=== PATIENT | male | born 1945 | race Caucasian/White ===

== ENCOUNTER → 2016-12-10 | Outpatient (CLI) | payer MEDICARE ==
[~2016-12-10] MED LIST: AMLODIPINE10 MG PO; CENTRUM SILVER1 TA1 PO; CIPROFLOXACIN500 MG PO; CO ENZYME Q-1050 MG PO; CRESTOR10 MG PO; GLYBURIDE MICRO1 TA1 PO; JANUVIA100 MG PO; KLOR-CON M2020 MEQ PO; LASIX40 MG PO; METOPROLOL SR50 MG PO; NOVOLIN 70/30 710 ML SC; QUINAPRIL40 MG PO
== END | disposition home or self-care (01) ==
LOC: US 10:26
DX: N18.4 Chronic kidney disease, stage 4 (severe) (principal); N32.89 Other specified disorders of bladder; Z85.528 Personal history of other malignant neoplasm of kidney; Z90.5 Acquired absence of kidney

== ENCOUNTER → 2017-02-17 | Outpatient (CLI) | payer MEDICARE ==
[2017-02-17 10:24] LABS: BASO % 0.5 % (0.0-1.0); EOS # 0.1 10*3/uL (0.0-0.4); EOS % 1.5 % (1.0-4.0); HEMATOCRIT 43.3 % (42.0-52.0); IG # 0.1 10*3/uL (0.0-0.1); LYMPH # 1.5 10*3/uL (1.3-4.4); LYMPH % 18.6 % (27.0-41.0); MEAN CELL VOLUME 87.1 fl (80.0-94.0); MEAN CORPUSCULAR HGB 30.2 pg (27.0-31.0); MEAN CORPUSCULAR HGB CONC 34.6 g/dl (33.0-37.0); MEAN PLATELET VOLUME 9.8 fl (9.6-12.3); MONO # 0.5 10*3/uL (0.1-1.0); MONO % 5.9 % (3.0-9.0); NEUT # 5.8 10*3/uL (2.3-7.9); NEUT % 72.6 % (47.0-73.0); PLATELET COUNT AUTOMATED 215 10*3/uL (130-400); RED BLOOD COUNT 4.97 10*6/uL (4.50-5.90)
[2017-02-17 10:32] LABS: BILIRUBIN NEGATIVE (NEGATIVE); BLOOD NEGATIVE (NEGATIVE); CLARITY CLEAR (CLEAR); COLOR STRAW (YELLOW); GLUCOSE 3+ (NEGATIVE); KETONE NEGATIVE (NEGATIVE); LEUKO ESTERASE NEGATIVE (NEGATIVE); NITRITE NEGATIVE (NEGATIVE); PROTEIN NEGATIVE (NEGATIVE); SPECIFIC GRAVITY <= 1.005 (1.005-1.030); UROBILINOGEN 0.2 E.U./dl (0.2-1.0)
[2017-02-17 10:55] LABS: MAGNESIUM 1.9 mg/dL (1.5-2.1); PHOSPHOROUS 2.9 mg/dL (2.5-4.9); POTASSIUM 3.8 mmol/L (3.5-5.1); WBC 0-2 wbc/hpf (0-5)
[2017-02-17 10:56] LABS: EPITHELIAL CELLS 0-2; URINE REFLEX COMMENT NO (NO)
[2017-02-17 11:39] LABS: PTH INTACT 58.2 pg/mL (14.0-72.0); VITAMIN D, 25-HYDROXY 25.9 ng/mL (30-100)
== END | disposition home or self-care (01) ==
LOC: LAB 09:54
PROVIDERS: Internal Medicine Nephrology
DX: N18.3 Chronic kidney disease, stage 3 (moderate) (principal); N25.81 Secondary hyperparathyroidism of renal origin

== ENCOUNTER → 2017-07-20 | Outpatient (CLI) | payer MEDICARE ==
[~2017-07-20] MED LIST changes: +ANACIN 400-321 EACH PO; +LOPRESSOR50 M1 PO; -METOPROLOL SR50 MG PO; +NOVOLOG MI100 UNIT/1 SQ; +OMEPRAZOLE20 M2 PO; +VITAMIN D31000 UNI1 PO; +XARE15TA PO
--- NOTE | 2017-07-20 10:00 | NUR ---
INFORMED CONSENT OBTAINED FOR LEXISCAN NUCLEAR STRESS TEST. RESTING EKG ATRIAL FIB WITH A RESTING HR OF 70 WITH BP OF 148/60. LUNGS CLEAR WITH SPO2 OF 96% ON ROOM AIR. PT COMPLETED A 1:00 LEXISCAN PROTOCOL RECEIVING LEXISCAN 0.4 MG IV OVER 10 SECONDS. HAD NO CHEST PAIN OR ANY EKG CHANGES. DID C/O "ODD FEELING" THAT SUBSIDED IN RECOVERY. HAD A PEAK HR OF 85 WITH BP OF 144/80. LAST RECOVERY HR OF 85 WITH BP OF 154/84. AWAITING SCANNING IN STABLE CONDITION.
== END | disposition home or self-care (01) ==
LOC: CARD 03:40
DX: I51.7 Cardiomegaly (principal); E11.9 Type 2 diabetes mellitus without complications; I10 Essential (primary) hypertension; Z87.891 Personal history of nicotine dependence

== ENCOUNTER → 2017-08-08 | Outpatient (CLI) | payer MEDICARE | LOC: LAB 15:16 | DX: H57.9 Unspecified disorder of eye and adnexa (principal) ==

== ENCOUNTER → 2018-06-26 | Outpatient (CLI) | payer MEDICARE ==
[2018-06-26 11:43] LABS: BASO # 0.1 10*3/uL (0.0-0.1); BASO % 0.8 % (0.0-1.0); EOS # 0.1 10*3/uL (0.0-0.4); EOS % 1.7 % (1.0-4.0); HEMATOCRIT 45.4 % (42.0-52.0); HEMOGLOBIN 15.1 g/dl (14.0-18.0); LYMPH # 1.7 10*3/uL (1.3-4.4); LYMPH % 22.8 % (27.0-41.0); MEAN CELL VOLUME 87.5 fl (80.0-94.0); MEAN CORPUSCULAR HGB 29.1 pg (27.0-31.0); MEAN CORPUSCULAR HGB CONC 33.3 g/dl (33.0-37.0); MEAN PLATELET VOLUME 9.6 fl (9.6-12.3); MONO # 0.7 10*3/uL (0.1-1.0); MONO % 8.9 % (3.0-9.0); NEUT # 4.8 10*3/uL (2.3-7.9); NEUT % 64.9 % (47.0-73.0); PLATELET COUNT AUTOMATED 221 10*3/uL (130-400); RED BLOOD COUNT 5.19 10*6/uL (4.50-5.90); RED CELL DISTRI WIDTH 13.5 % (0-14.5); WHITE BLOOD COUNT 7.5 10*3/uL (4.8-10.8)
[2018-06-26 12:14] LABS: ALBUMIN 3.6 gm/dl (3.1-4.5); CREATININE 1.69 mg/dL (0.70-1.30); POTASSIUM 3.9 mmol/L (3.5-5.1); TOTAL PROTEIN 7.3 gm/dL (6.4-8.2)
[2018-06-26 12:23] LABS: FREE T4 1.09 ng/dl (0.76-1.46); THYROID STIM HORMONE (HS) 1.92 uIU/ml (0.358-4.75)
== END | disposition home or self-care (01) ==
LOC: LAB 10:54
PROVIDERS: Internal Medicine
DX: S32.010A Wedge compression fracture of first lumbar vertebra, initial encounter for closed fracture (principal); E11.65 Type 2 diabetes mellitus with hyperglycemia; R06.02 Shortness of breath; R60.0 Localized edema; I48.2 Chronic atrial fibrillation; X58.XXXA Exposure to other specified factors, initial encounter; Y93.89 Activity, other specified; Y92.89 Other specified places as the place of occurrence of the external cause; Y99.8 Other external cause status

== ENCOUNTER → 2018-07-03 | Outpatient (CLI) | payer MEDICARE | END | disposition home or self-care (01) | LOC: CARD 03:23 | DX: S32.010A Wedge compression fracture of first lumbar vertebra, initial encounter for closed fracture (principal); M51.37 Other intervertebral disc degeneration, lumbosacral region; I48.2 Chronic atrial fibrillation; I51.7 Cardiomegaly; X58.XXXA Exposure to other specified factors, initial encounter; Y93.89 Activity, other specified; Y92.89 Other specified places as the place of occurrence of the external cause; Y99.8 Other external cause status ==

== ENCOUNTER → 2018-08-21 | Outpatient (CLI) | payer MEDICARE ==
[~2018-08-21] MED LIST changes: +CEPHALEXIN500 M1 PO; +PROPAFENONE HC150 MG PO; +ZYLOPRIM100 MG PO
== END | disposition home or self-care (01) ==
DX: M43.9 Deforming dorsopathy, unspecified (principal)

== ENCOUNTER → 2018-09-14 | Outpatient (CLI) | payer MEDICARE ==
[2018-09-14 12:24] LABS: PTH INTACT 80.7 pg/mL (18.5-88.0); VITAMIN D, 25-HYDROXY 30.3 ng/mL (30-100)
[2018-09-14 13:33] LABS: URINE CREATININE RANDOM 77.7 mg/dL
== END | disposition home or self-care (01) ==
PROVIDERS: Internal Medicine Nephrology
DX: I12.9 Hypertensive chronic kidney disease with stage 1 through stage 4 chronic kidney disease, or unspecified chronic kidney disease (principal); E11.22 Type 2 diabetes mellitus with diabetic chronic kidney disease; N18.4 Chronic kidney disease, stage 4 (severe); Z90.5 Acquired absence of kidney

== ENCOUNTER 2018-10-21 18:22 | Inpatient (IN) | payer MEDICARE ==
[~2018-10-21] VITALS: Ht 180.3 cm; Wt 149.9 kg
--- NOTE | ~2018-10-21 | EKG ---
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
--- NOTE | ~2018-10-21 | WRIGHTHP ---
[place], [place] PATIENT HISTORY AND PHYSICAL EXAM NAME: MAXIMO DODGE [facility] #: [id number] UNIT #: [id number] ROOM: [facility] DOCTOR: DUYEN YU MD BIRTHDATE: [birth year] DOS: HISTORY OF PRESENT ILLNESS: The patient has been admitted to hospital last night with cellulitis of the abdominal wall, which he started having for the last 5 days. It started like a small pimple, then spread all around his belly starting from the left side going to the right side and it did become painful and itchy and he came to hospital, where he was found to be having cellulitis of the abdominal wall and needed to be admitted to the hospital. The patient denies any pain inside the abdomen. No nausea, no vomiting, no constipation or diarrhea and he is eating good. He has been ambulating fairly good. PAST MEDICAL HISTORY: The patient has past history of hypertension; GERD syndrome; atrial fibrillation; diabetes mellitus, insulin-dependent; ASHD; congestive heart failure; hyperlipidemia. PAST SURGICAL HISTORY: He has a past history of appendectomy and nephrectomy. SOCIAL HISTORY: The patient does not smoke, does not drink, does not use any illegal drugs. FAMILY HISTORY: Strong history of diabetes mellitus and coronary heart disease, hypertension and cerebrovascular disease in the family. PHYSICAL EXAMINATION: GENERAL: The patient is conscious and alert, sitting comfortably in the bed. VITAL SIGNS: His blood pressure is 111/72, pulse is 52, respirations 21, temperature 98.2. He is 5 feet 11 inches tall, weighing 300 pound, body mass is 46.1. ENT: Unremarkable. No glandular enlargement. NECK: Trachea is central. Neck veins are not distended. HEART: Irregularly irregular due to atrial fibrillation. LUNGS: Clear. No creps or rhonchi. ABDOMEN: He is having redness, swelling all across his abdomen, mostly in the lower two-third, local temperature. It is red and inflamed and tender to touch, but there is no evident localized abscess felt and the patient's organomegaly cannot be felt as he is obese, but apparently he does not have any GI or symptom. EXTREMITIES: No edema of leg. NEUROLOGIC: No neurological deficit observed. LABORATORY DATA: CBC done in Emergency showed white count 10,500, hemoglobin 15.1, hematocrit 43.9. Lactic acid is 1.3, which is normal. Protime is 11.6, which is also normal. Comprehensive metabolic profile showed glucose 267, BUN 23, creatinine 1.75, GFR 38. Sodium 134, calcium 8.2, other values are normal, indicating chronic renal failure. His troponin level is 0.69, which is high. Electrocardiogram showed atrial fibrillation. Chest x-ray shows left lower lobe patchy atelectasis seen. Repeat troponin level is 0.72 and 0.63, which is high. Comprehensive metabolic profile today showed glucose 223, BUN 20, creatinine 1.68, GFR is 40 and hemoglobin A1c is 8.5, which is high. [place], [place] PATIENT HISTORY AND PHYSICAL EXAM [facility]: [facility] [id number] UNIT #: [id number] ROOM: [facility] DOCTOR: DUYEN YU MD BIRTHDATE: [birth year] DIAGNOSES: Cellulitis of the abdominal wall with diabetes mellitus, uncontrolled with massive ST atrial fibrillation, arteriosclerotic heart disease, hypertension and diabetic nephropathy with renal failure. MEDICATIONS: The patient is being treated by allopurinol 100 mg daily, rivaroxaban 15 mg daily, lisinopril 40 mg, potassium chloride 20 mEq, metoprolol 50 mg, Lasix 40 mg daily, vitamin D 1000 units daily, insulin 100 units subcutaneous, omeprazole 20 mg, piperacillin 3.375 grams every 6 hour and vancomycin 1 gram daily. DUYEN YU MD CM:HISPHYS:PATIENT HISTORY AND PHYSICAL EXAMINATION 1310 1403 DUYEN YU MD 10/22/18 1404 interface
--- NOTE | ~2018-10-21 | PR ---
[place], [place] PROGRESS NOTE [facility] [id number] UNIT #: [id number] ROOM: 501 DOCTOR: GELA ERAZO MD BIRTHDATE: [birth year] DOS: 10/23/2018 SUBJECTIVE: He feels fairly decent. Does not have any chills or fever, but abdominal wall is still very tender. He has not had any nausea or vomiting. He is not short of breath. He has no palpitations or swelling in the legs. PHYSICAL EXAMINATION: GENERAL: The patient is pleasant, alert, oriented. VITAL SIGNS: Pulse is irregular at 64 beats per minute, blood pressure 142/78. NECK: JVP is normal. LUNGS: Fairly clear. EXTREMITIES: 1+ pretibial edema bilaterally. Monitor shows atrial flutter with a controlled ventricular rate. A transthoracic echocardiogram that was done last year was unsatisfactory because all details of the heart could not be obtained because of poor study. RECOMMENDATIONS: The patient will undergo a transesophageal echocardiogram tomorrow followed by electrical cardioversion and I discussed this procedure with the patient. He understands and would like to proceed. GELA ERAZO MD CM:PNTRANS 1035 [id number] GELA ERAZO MD 10/23/18 1359 interface
--- NOTE | ~2018-10-21 | PR ---
[place], [place] PROGRESS NOTE NAME: MAXIMO DODGE [facility] #: [id number] UNIT #: [id number] ROOM: 501 DOCTOR: GELA ERAZO MD BIRTHDATE: [birth year] DOS: 10/26/2018 SUBJECTIVE: He feels well. No fever or chills. Abdominal pain has subsided remarkably and redness has also decreased. He has no palpitation, dizziness. Breathing is fine. He had a transesophageal echocardiogram and electrical cardioversion of atrial flutter, atrial fibrillation to normal sinus rhythm. He feels well. Appetite is good. PHYSICAL EXAMINATION: GENERAL: The patient was sitting in a chair, very obese man. VITAL SIGNS: Pulse is regular at 64 beats per minute, blood pressure 132/65. NECK: JVP is normal. LUNGS: Clear. CARDIOVASCULAR: Heart sounds are regular. IMPRESSION: 1. The patient remains in sinus rhythm. 2. His cellulitis of the abdominal wall has responded well to antibiotics. PLAN: Please continue antiarrhythmic and anticoagulant and I will see him in my office in 2-4 weeks. GELA ERAZO MD CM:PNTRANS [phone] [id number] GELA ERAZO MD 10/27/18228 interface
--- NOTE | ~2018-10-21 | EKG ---
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
--- NOTE | ~2018-10-21 | CON ---
[place], [place] REPORT OF CONSULTATION [id number] #: [id number] ROOM: 501 DOCTOR: GELA ERAZO MD BIRTHDATE: [birth year] DOS: 10/22/2018 HISTORY OF PRESENT ILLNESS: This is a 72-year-old -[place] gentleman with a history of atrial fibrillation, which was diagnosed in August last year and has been anticoagulated ever since. He also has essential hypertension and diabetes mellitus for a very long time that has been poorly controlled. He has morbid obesity, has hyperlipidemia, but has never had COPD, never had cancer, stroke or any bleeding ulcers and he is not aware of his kidney having any problems. He had appendectomy, in the remote past had right nephrectomy as well. He has never smoked cigarettes, does not use alcoholic beverages. FAMILY HISTORY: Father was 61 when he had a heart attack and . Mother of complications from diabetes at a young age as well. SOCIAL HISTORY: He lives at home and is a reasonably active gentleman. He was admitted to the hospital because of redness and soreness of the abdominal wall and acute cellulitis has been diagnosed. He did not have any fever or chills. No PND, orthopnea and is not aware of his heart beating irregularly. He has not had any orthopnea. He does have sleep apnea, but does not use CPAP. HOME MEDICATIONS: Include metoprolol tartrate 50 mg daily, omeprazole 20 daily, rivaroxaban 15 mg daily, aspirin/caffeine daily, furosemide 40 mg daily, lovastatin 10 daily, quinapril 40 mg daily, potassium chloride 20 mEq daily, cholecalciferol D3 1000 units b.i.d., omeprazole 20 daily and insulin/NovoLog mix 70/30 120 units daily. PHYSICAL EXAMINATION: GENERAL: This reveals a patient who is extremely obese and weighs 150 kilos. He is not anemic, not jaundiced. There is no thyromegaly or finger clubbing. VITAL SIGNS: He is not tachypneic. Temperature is normal. CARDIOVASCULAR: Pulse is irregular at 86 beats per minute, blood pressure 133/59. There is no cardiomegaly. Cardiac auscultation reveals distant heart sounds, but no murmur or rub. NECK: JVP is normal. AJR is negative. There is no carotid bruit. EXTREMITIES: He has good dorsalis pedis pulses with no edema in the lower extremities. RESPIRATORY: Lungs are clear to percussion and auscultation with good breath sounds. ABDOMEN: It is rather large and there is acute erythema and tenderness with some induration of the skin in the middle portion of the abdomen that goes across both sides. Bowel sounds are normal. An ECG on admission demonstrated atrial fibrillation with ventricular rate of 77 beats per minute. Troponin I level was 0.72, then has trended down to 0.63 and 0.59. Glucose is 267 mg/dL, creatinine is 1.78, BUN 23, and estimated GFR is 38 mL per minute, potassium 4.2, sodium 134 which is probably a pseudohyponatremia because of elevated glucose level. Liver enzymes are normal. Magnesium 1.8. Hemoglobin [place], [place] REPORT OF CONSULTATION NAME: MAXIMO DODGE UNIT #: [id number] ROOM: [facility] DOCTOR: GELA ERAZO MD BIRTHDATE: [birth year] is 15.1 g/dL, WBC 10.50. IMPRESSION: 1. Persistent atrial fibrillation diagnosed recently. He is adequately anticoagulated and the rate is controlled. My recommendation is to electrically cardiovert this man into normal sinus rhythm and if not successful or even successful, then place him on an antiarrhythmic. He had an echocardiogram in June of last year, which showed normal LV function and moderately enlarged left atrium. 2. Slightly increased troponin I level is present. The rate is trending down. This may be type 2 myocardial infarction, may be non-coronary occlusion reasons such as chronic kidney disease, tachycardia, but I think this needs to be evaluated further and since he has all major risk factors for coronary artery disease other than smoking, I think a diagnostic heart catheterization with selective coronary angiogram would probably be a better approach. 3. Abdominal wall cellulitis is being treated. 4. Chronic kidney disease. I thank you for this consult. GELA ERAZO MD CM:CONSTR:REPORT OF CONSULTATION 1106 10/23/18 0216 interface ANDREW SHAVER MD
[2018-10-21 18:22] VITALS: BP 170/85
[~2018-10-21 18:22] MED LIST changes: -CEPHALEXIN500 M1 PO; -PROPAFENONE HC150 MG PO; -ZYLOPRIM100 MG PO
[2018-10-21 18:56] LABS: BASO % 0.4 % (0.0-1.0); EOS % 0.4 % (1.0-4.0); HEMATOCRIT 43.9 % (42.0-52.0); HEMOGLOBIN 15.1 g/dl (14.0-18.0); LYMPH # 1.4 10*3/uL (1.3-4.4); LYMPH % 13.1 % (27.0-41.0); MEAN CELL VOLUME 85.9 fl (80.0-94.0); MEAN CORPUSCULAR HGB 29.5 pg (27.0-31.0); MEAN CORPUSCULAR HGB CONC 34.4 g/dl (33.0-37.0); MONO % 9.3 % (3.0-9.0); NEUT % 76.1 % (47.0-73.0); PLATELET COUNT AUTOMATED 186 10*3/uL (130-400); RED BLOOD COUNT 5.11 10*6/uL (4.50-5.90); RED CELL DISTRI WIDTH 13.7 % (0-14.5); WHITE BLOOD COUNT 10.5 10*3/uL (4.8-10.8)
[2018-10-21 19:04] LABS: INTERNATIONAL NORM RATIO 1.1 (2.0-3.5)
[2018-10-21 19:11] LABS: ALBUMIN 3.1 gm/dl (3.1-4.5); CREATININE 1.78 mg/dL (0.70-1.30); POTASSIUM 4.2 mmol/L (3.5-5.1); TOTAL PROTEIN 7.3 gm/dL (6.4-8.2)
--- NOTE | 2018-10-21 19:13 | NUR ---
CRITICAL LAB TAKEN, TROPONIN 0.069 Darshan.ARDEN TOUSSAINT NOTIFIED.
[2018-10-21 19:14] LABS: TROPONIN I 0.069 ng/ml (<0.045)
--- NOTE | 2018-10-21 19:56 | NUR ---
PT STATES THE MORPHINE WAS SLIGHTLY EFFECTIVE FOR HIS PAIN, STATES HE IS NOT UNCOMFORTABLE AT THIS TIME. BOX LUNCH WAS PROVIDED WELL. MIRNAING FOR CHEST X-RAY RESULTS.
[2018-10-21 19:58] VITALS: BP 155/82
[2018-10-21 21:31] VITALS: BP 151/78
[2018-10-21 21:40] VITALS: BP 147/69
--- NOTE | 2018-10-21 21:40 | NUR ---
Time: 2139 A 72 year old MALE admitted to 5E under services of DR. SIVAKUMAR LOCKWOOD,ANDREW. Pt. arrived via stretcher from ER. Chief complaint: CELLULITIS MID ABDOMEN. MONICA WOOD
[2018-10-21] MEDS ORDERED: ZYLOPRIM100 MG PO (22:39)
--- NOTE | 2018-10-21 23:39 | NUR ---
CONTACTED DR. SHAVER REGARDING ADMISSION ORDERS.
[2018-10-22] VITALS: BP 111/59; BP 147/77
--- NOTE | 2018-10-22 | NUR ---
ATTEMPTED TO CONSULT DR. MENEZES, WILL ATTEMPT AGAIN.
--- NOTE | 2018-10-22 02:51 | NUR ---
ATTEMPTED TO CONSULT DR. ROBERTS AT THIS TIME, WILL TRY AGAIN.
--- NOTE | 2018-10-22 05:42 | NUR ---
DR. ERAZO CALLED BACK REGARDING CONSULT SEE NEW ORDERS.
[2018-10-22 06:16] LABS: BASO % 0.4 % (0.0-1.0); EOS # 0.1 10*3/uL (0.0-0.4); EOS % 1.2 % (1.0-4.0); HEMATOCRIT 40.8 % (42.0-52.0); HEMOGLOBIN 13.7 g/dl (14.0-18.0); LYMPH # 1.3 10*3/uL (1.3-4.4); LYMPH % 17.4 % (27.0-41.0); MEAN CORPUSCULAR HGB 29.2 pg (27.0-31.0); MEAN CORPUSCULAR HGB CONC 33.6 g/dl (33.0-37.0); MEAN PLATELET VOLUME 10.3 fl (9.6-12.3); MONO # 0.9 10*3/uL (0.1-1.0); NEUT # 4.9 10*3/uL (2.3-7.9); NEUT % 67.3 % (47.0-73.0); PLATELET COUNT AUTOMATED 164 10*3/uL (130-400); RED BLOOD COUNT 4.69 10*6/uL (4.50-5.90); RED CELL DISTRI WIDTH 13.8 % (0-14.5); WHITE BLOOD COUNT 7.2 10*3/uL (4.8-10.8)
[2018-10-22 06:50] LABS: ALBUMIN 2.8 gm/dl (3.1-4.5); CREATININE 1.68 mg/dL (0.70-1.30); POTASSIUM 4.1 mmol/L (3.5-5.1); TOTAL PROTEIN 6.8 gm/dL (6.4-8.2)
[2018-10-22 06:59] LABS: THYROID STIM HORMONE (HS) 2.32 uIU/ml (0.358-4.75)
[2018-10-22 08:00] VITALS: BP 133/59
--- NOTE | 2018-10-22 10:39 | NUR ---
IN TO SEE PATIENT.
--- NOTE | 2018-10-22 10:41 | NUR ---
AWARE OF CONSULT.
[2018-10-22 12:00] VITALS: BP 111/72
--- NOTE | 2018-10-22 13:31 | NUR ---
IN TO SEE PATIENT.
[2018-10-22 16:00] VITALS: BP 130/53
[2018-10-22 20:00] VITALS: BP 128/47
[2018-10-23] VITALS: BP 119/54
--- NOTE | 2018-10-23 06:05 | NUR ---
ABDOMINAL CELLULITIS STREAKY REDNESS LOOKING MORE LOCALIZED THIS AM. INTIAL ASSESSMENT, REDNESS WAS ALL OVER ABDOMEN. AREA IS HOT. WOUND CARE CRYSTAL INTO SEE PT.
[2018-10-23 06:28] LABS: BASO # 0.1 10*3/uL (0.0-0.1); BASO % 0.7 % (0.0-1.0); EOS # 0.2 10*3/uL (0.0-0.4); EOS % 3.1 % (1.0-4.0); HEMATOCRIT 42.9 % (42.0-52.0); HEMOGLOBIN 14.4 g/dl (14.0-18.0); LYMPH # 1.5 10*3/uL (1.3-4.4); LYMPH % 20.1 % (27.0-41.0); MEAN CELL VOLUME 86.8 fl (80.0-94.0); MEAN CORPUSCULAR HGB 29.1 pg (27.0-31.0); MEAN CORPUSCULAR HGB CONC 33.6 g/dl (33.0-37.0); MEAN PLATELET VOLUME 10.1 fl (9.6-12.3); MONO # 0.9 10*3/uL (0.1-1.0); MONO % 11.7 % (3.0-9.0); NEUT # 4.8 10*3/uL (2.3-7.9); NEUT % 63.3 % (47.0-73.0); PLATELET COUNT AUTOMATED 208 10*3/uL (130-400); RED BLOOD COUNT 4.94 10*6/uL (4.50-5.90); RED CELL DISTRI WIDTH 13.7 % (0-14.5); WHITE BLOOD COUNT 7.5 10*3/uL (4.8-10.8)
[2018-10-23 06:51] LABS: CREATININE 1.77 mg/dL (0.70-1.30); POTASSIUM 4.2 mmol/L (3.5-5.1)
--- NOTE | 2018-10-23 06:52 | NUR ---
MAXIMO DODGE [id number] Please refer to the physician's history and physical for past medical history, comorbid conditions, and allergies. Diagnosis: CELLULITIS OF ABDOMINAL WALL SEPSIS ELEVATED Homero Score: 21,LOW OR NO RISK WOUND DESCRIPTIONS: Location of the wound: lower middle abdomen Type of wound: rash Thickness: Partial Size: 19.5cm x 61.0cm x 0.1cm Tunneling: none Undermining: none Sinus Tract: none Presence of Exudate: Amount: None Color: Red Odor: None Periwound Skin Appearance: Erythema, warmth patient has intact scab noted to left lower abdomen inside the red area. measuring 19.5cm x 61.0cm x 0.1cm. Patient stated this is from him giving himself insulin injections since he can no longer reach his arms. Wound edges: approximated Pain (associated with wound): very tender to touch or right side of abdomne How does patient state this happened? pt was unaware that he even had anything to his abdomen until his daughter questioned why his stomach was red. Patient stated he lifted his shirt and noticed this area he stated he didn't have any type of discomfort until tuesday and that is what brought him into the ER. Patient denies itching at time of assessment. Surface the patient is resting on: Isoflex SKIN PREVENTION RECOMMENDATION: 1. Pressure redistribution support surface as appropriate 2. Elevate heels 3. Remove boots/TEDS every shift and reapply 4. Head of bed 30 degrees as tolerated 5. Assess nutrition and hydration 6. Manage moisture 7. Avoid the use of containment devices while in bed 8. Use absorptive products on surfaces limit layers of linens on bed 9. Turn and reposition every 1-2 hours in bed and every 1 hour in chair as tolerated 10. Weight shifts every 15 minutes while up in chair 11. Offloading with pillows or device to keep heels elevated off bed 12. Monitor skin at least every shift 13. Inspect under medical devices twice a day WOUND TREATMENT RECOMMENDATIONS: Imaging studies to abdomen due to increase pain, warmth and rash.
[2018-10-23 08:00] VITALS: BP 142/78
--- NOTE | 2018-10-23 09:00 | NUR ---
Ocean Biologist in to talk to patient. Patient states lives at home with his daughter. There are 0 steps in the home. Physician: Dr. Agus Manning Pharmacy: [facility] Home health services: none Patient's level of ADLs: MINIMAL ASSIST Patient has working utilities: yes DME: cane Follow-up physician's appointment after d/c: he prefers to make his own appt after discharge Does patient want to access PORTAL?: no Discharge plan discussed with patient. He lives at home with his daughter. He is independent in his ADLs and ambulates with cane. There is a wheelchair ramp. Discussed home health care services and he denies any home needs at this time. When medically stable he will be discharged to home. ALICE GARZA
--- NOTE | 2018-10-23 09:54 | NUR ---
Dr. Burrell notified of wound care recommendations.
--- NOTE | 2018-10-23 11:30 | NUR ---
PT NOT READY TO EAT LUNCH, BS 143, 100U OF 70/30 HELD FOR NOW
[2018-10-23 12:00] VITALS: BP 112/83
[2018-10-23 16:00] VITALS: BP 130/65
[2018-10-23 20:00] VITALS: BP 149/76
[2018-10-24] VITALS (10 sets, daily range): BP systolic 110–162; BP diastolic 64–88
--- NOTE | 2018-10-24 06:30 | NUR ---
PATIENT TAKEN DOWN TO SURGERY AT THIS TIME.
--- NOTE | 2018-10-24 07:15 | NUR ---
PATIENT BROUGHT BACK UP FROM SURGERY D/T DR. ERZAO CALLED AND SAID HE HAD AN EMERGENCY AND WOULDN'T BE HERE UNTIL ABOUT 10AM. SURGERY WILL COME BACK TO GET HIM IN A LITTLE WHILE.
[2018-10-24 07:34] LABS: ALBUMIN 3.2 gm/dl (3.1-4.5); CREATININE 1.82 mg/dL (0.70-1.30); TOTAL PROTEIN 7.8 gm/dL (6.4-8.2)
--- NOTE | 2018-10-24 07:39 | NUR ---
VS ARE STABLE, A&O X3, HEART SOUNDS ARE NORMAL, LUNGS ARE CLEAR THROUGH OUT ALL LOBES, SKIN INTACT PINK WARM AND DRY, POSITIVE PEDAL PULSES, NO EDEMA NOTED, CAP REFILL <3, ABD SOFT NONTENDER NONDISTENDED, BS X4, PT NPO, STATES "I HAVE NO PAIN AT THIS TIME" WILL CONTINUE TO MONITOR. NESTOR LEWISN
--- NOTE | 2018-10-24 09:15 | NUR ---
PT TAKEN DOWN TO SURGERY AT THIS TIME, PT IN STABLE CONDITION, VIA BED. NESTOR HURLEY
--- NOTE | 2018-10-24 11:15 | NUR ---
PT BROUGHT BACK TO FLOOR VIA BED FROM SURGERY, VS STABLE AND RESTING. WILL CONTINUE TO MONITOR. NESTOR HURLEY
--- NOTE | 2018-10-24 14:00 | NUR ---
Junior Sales Representative in to see patient. Discussed home health care services and he is agreeable. When provided with a list of agencies he chose [facility]. When medically stable he will be discharged to home with [facility].
--- NOTE | 2018-10-24 14:00 | NUR ---
CALLED AND SPOKE WITH DR NOE REGARDING PT BEING MS. HE STATES THAT PT CAN BE MS AT THIS TIME . TAXATION CONSULTANT IS NOT NECESSARY
--- NOTE | 2018-10-24 15:55 | NUR ---
PT SITTING UP IN BED. NO DISTRESS NOTED. WILL MONITOR FAMILY AT BEDSIDE
[2018-10-25] VITALS: BP 128/46
--- NOTE | 2018-10-25 00:40 | NUR ---
PATIENT TOLD THIS NURSE HIS URINE SMELLS BAD. NEW ORDER FOR URINALYSIS ON PATIENT.
[2018-10-25 06:33] LABS: CREATININE 1.83 mg/dL (0.70-1.30); POTASSIUM 4.3 mmol/L (3.5-5.1)
--- NOTE | 2018-10-25 07:50 | NUR ---
Alert and oriented x3. Pleasant and cooperative with care. Denies sob. Denies pain. Lungs diminished and clear throughout all lung nunez. Abdomen soft normoactive bs x4. Obese abdomen. Redness noted across whole abdomen. Pt states redness is much improved from when he was admitted. Bp was 138/80. Routine meds given this am.
[2018-10-25 08:00] VITALS: BP 138/80
--- NOTE | 2018-10-25 08:30 | NUR ---
Geophysical Laboratory Supervisor in to see patient. No new needs or request at this time. When medically stable he will be discharged to home with [facility] services.
[2018-10-25 10:03] LABS: BILIRUBIN NEGATIVE (NEGATIVE); BLOOD NEGATIVE (NEGATIVE); CLARITY CLEAR (CLEAR); COLOR YELLOW (YELLOW); GLUCOSE NEGATIVE (NEGATIVE); KETONE NEGATIVE (NEGATIVE); LEUKO ESTERASE NEGATIVE (NEGATIVE); NITRITE NEGATIVE (NEGATIVE); PH 5.5 (5.0-9.0); UROBILINOGEN 0.2 E.U./dl (0.2-1.0)
[2018-10-25 10:23] LABS: BACTERIA TRACE; EPITHELIAL CELLS 0-2
[2018-10-25 12:00] VITALS: BP 132/60
[2018-10-25 16:00] VITALS: BP 126/61
--- NOTE | 2018-10-25 19:20 | NUR ---
VISITING WITH DAUGHTERS UPON BEDSIDE SHIFT REPORT. NO VOICED COMPLAINTS
[2018-10-25 20:00] VITALS: BP 170/89
--- NOTE | 2018-10-25 20:15 | NUR ---
24 HR chart check completed.
--- NOTE | 2018-10-25 21:00 | NUR ---
SITTING AT BEDSIDE, NO DISTRESS NOTED. RESPIRATIONS EASY. LUNGS DIMINISHED, CLEAR. PULSE OX 97% RA. ABD SOFTLY OBESE WITH NORMOACTIVE BOWEL SOUNDS. ABD REMAINS RED, DENIES PAIN. OFFERED HEEL PROTECTORS PER ORDER, DECLINED. CALL LIGHT WITHIN REACH. NO VOICED COMPLAINTS
[2018-10-26] VITALS: BP 140/53; BP 148/58
--- NOTE | 2018-10-26 | NUR ---
SLEEPING. NO DISTRESS NOTED. RESPIRATIONS EASY. VSS. CALL LIGHT WITHIN REACH.
--- NOTE | 2018-10-26 05:00 | NUR ---
AWAKE, SITTING IN RECLINER. NO DISTRESS NOTED. NO VOICED COMPLAINTS
--- NOTE | 2018-10-26 06:00 | NUR ---
AMBULATING HALLWAY. NO DISTRESS NOTED
--- NOTE | 2018-10-26 06:15 | NUR ---
BSG 178, PATIENT DECLINING 70/30 COVERAGE AT THIS TIME. WILL INFORM ONCOMING RN
[2018-10-26 08:00] VITALS: BP 157/75
--- NOTE | 2018-10-26 08:00 | NUR ---
PT SITTING UP AT BEDSIDE. RESP-EASY AND REGULAR. ABD RED,SWELLING,TENDER TO TOUCH, DENIES NEED FOR PAIN. CALL LIGHT IN REACH. SEE SHIFT ASSESSMENT.
[2018-10-26 08:06] LABS: ALBUMIN 3.1 gm/dl (3.1-4.5); CREATININE 1.9 mg/dL (0.70-1.30); POTASSIUM 4.3 mmol/L (3.5-5.1); TOTAL PROTEIN 7.5 gm/dL (6.4-8.2)
--- NOTE | 2018-10-26 09:00 | NUR ---
Deployment Specialist in to see patient. No new needs or request at this time. When medically stable he will be discharged to home with [facility] services.
--- NOTE | 2018-10-26 10:24 | NUR ---
Faxed [facility] referral
--- NOTE | 2018-10-26 10:35 | NUR ---
IV started left forearm with #22 angiocath after 1 attempts. The IV site was prepped with Chloraprep. Heparin lock attached. Sterile dressing applied. Patient tolerated precedure well. Procedure performed according to [facility] policy & procedure. MORENA PEREZ
[2018-10-26 12:00] VITALS: BP 132/65
--- NOTE | 2018-10-26 12:00 | NUR ---
SITTING UP AT SIDE OF BED. BSG-223, SEE EMAR. PT WAITING FOR LUNCH. CALL LIGHT IN REACH.
[2018-10-26] MEDS ORDERED: CEPHALEXIN500 M1 PO (14:48)
[2018-10-26] MEDS ORDERED: PROPAFENONE HC150 MG PO (14:48)
--- NOTE | 2018-10-26 15:19 | NUR ---
Discharge instructions reviewed with patient/family. Patient receptive and verbalizes understanding. Follow-up care arranged. Written instructions given to patient/family. HEPLOCK REMOVED 2X2 APPLIED. ESCORTED VIA WHEELCHAIR FOR DISCHARGE. MORENA PEREZ R
== END 2018-10-26 15:19 | disposition home health service (06) | DRG 872 ==
LOC: ED 18:22 → EDHOLD 20:54 → 5E 20:54
PROVIDERS: Internal Medicine; Internal Medicine Nephrology; Physician Assistant; Student in an Organized Health Care Education/Training Program; ADMIT Internal Medicine
PROC: B24BZZ4 Ultrasonography of Heart with Aorta, Transesophageal (ICD-10-PCS; principal; 2018-10-24)
DX: A41.9 Sepsis, unspecified organism (principal); L03.311 Cellulitis of abdominal wall; I48.1 Persistent atrial fibrillation; I48.92 Unspecified atrial flutter; Z68.42 Body mass index [BMI] 45.0-49.9, adult; I13.0 Hypertensive heart and chronic kidney disease with heart failure and stage 1 through stage 4 chronic kidney disease, or unspecified chronic kidney disease; K21.9 Gastro-esophageal reflux disease without esophagitis; I50.9 Heart failure, unspecified; E78.5 Hyperlipidemia, unspecified; I25.10 Atherosclerotic heart disease of native coronary artery without angina pectoris; E11.22 Type 2 diabetes mellitus with diabetic chronic kidney disease; E66.01 Morbid (severe) obesity due to excess calories; M10.9 Gout, unspecified; N18.3 Chronic kidney disease, stage 3 (moderate); Z79.82 Long term (current) use of aspirin; Z79.899 Other long term (current) drug therapy; Z90.5 Acquired absence of kidney; Z90.49 Acquired absence of other specified parts of digestive tract; Z79.4 Long term (current) use of insulin; Z83.3 Family history of diabetes mellitus; Z82.49 Family history of ischemic heart disease and other diseases of the circulatory system; Z82.3 Family history of stroke; Z85.528 Personal history of other malignant neoplasm of kidney

== ENCOUNTER → 2019-07-06 | Outpatient (CLI) | payer MEDICARE ==
[~2019-07-06] MED LIST changes: +CEPHALEXIN500 M1 PO; +PROPAFENONE HC150 MG PO; +ZYLOPRIM100 MG PO
== END | disposition home or self-care (01) ==
LOC: RAD 13:37
DX: M43.17 Spondylolisthesis, lumbosacral region (principal)

== ENCOUNTER → 2020-05-23 | Outpatient (CLI) | payer MEDICARE ==
[2020-05-23 13:52] LABS: BASO # 0.1 10*3/uL (0.0-0.1); BASO % 0.6 % (0.0-1.0); EOS # 0.2 10*3/uL (0.0-0.4); EOS % 1.9 % (1.0-4.0); HEMATOCRIT 40.6 % (42.0-52.0); LYMPH # 1.6 10*3/uL (1.3-4.4); LYMPH % 19.2 % (27.0-41.0); MEAN CELL VOLUME 86.2 fl (80.0-94.0); MEAN CORPUSCULAR HGB 27.6 pg (27.0-31.0); MEAN PLATELET VOLUME 9.5 fl (9.6-12.3); MONO # 0.7 10*3/uL (0.1-1.0); MONO % 8.6 % (3.0-9.0); NEUT # 5.8 10*3/uL (2.3-7.9); NEUT % 69.1 % (47.0-73.0); PLATELET COUNT AUTOMATED 242 10*3/uL (130-400); RED BLOOD COUNT 4.71 10*6/uL (4.50-5.90); RED CELL DISTRI WIDTH 14.7 % (0-14.5); WHITE BLOOD COUNT 8.3 10*3/uL (4.8-10.8)
[2020-05-23 14:25] LABS: CREATININE 1.94 mg/dL (0.70-1.30); POTASSIUM 4.5 mmol/L (3.5-5.1)
[2020-05-23 14:31] LABS: THYROID STIM HORMONE (HS) 1.82 uIU/ml (0.358-4.75)
== END | disposition home or self-care (01) ==
LOC: LAB 13:33
PROVIDERS: ATTEND Internal Medicine
DX: I48.11 Longstanding persistent atrial fibrillation (principal); R06.02 Shortness of breath

== ENCOUNTER → 2020-05-27 | Outpatient (CLI) | payer MEDICARE ==
[~2020-05-27] MED LIST changes: +LIPITOR20 MG PO; +NEURONTIN100 MG PO; -OMEPRAZOLE20 M2 PO; +OMEPRAZOLE40 MG PO; +PROPAFENONE HC225 M1 PO; +TYLENOL EXTRA500 M2 PO; -VITAMIN D31000 UNI1 PO; +VITAMIN D350 MC2 PO
--- NOTE | 2020-05-27 13:00 | NUR ---
INFORMED CONSENT OBTAINED FOR LEXISCAN NUCLEAR STRESS TEST WITH DR. SHAVER. RESTING EKG ATRIAL FIB RBBB WITH A RESTING HR OF 79 WITH BP OF 164/80. LUNGS CLEAR WITH SPO2 OF 97% ON ROOM AIR. PT COMPLETED A 1:00 LEXISCAN PROTOCOL RECEIVING LEXISCAN 0.4 MG IV OVER 10 SECONDS. HAD NO CHEST BUT DID C/O SHORTNESS OF BREATH THAT WAS RELIEVED IN RECOVERY. HAS PVC'S WITH COUPLETS AND TRIPLET. NONDIAGNOSTIC ST CHANGES. HAD A PEAK HR OF 101 WITH BP OF 158/74. LAST RECOVERY HR OF 81 WITH BP OF 168/84. AWAITING SCANNING IN STABLE CONDITION.
== END | disposition home or self-care (01) ==
LOC: CARD 00:22
PROVIDERS: ATTEND Internal Medicine
DX: I48.11 Longstanding persistent atrial fibrillation (principal); R06.02 Shortness of breath

== ENCOUNTER → 2021-03-31 | Outpatient (CLI) | payer MEDICARE ==
[~2021-03-31] MED LIST changes: +JARDIANCE10 MG PO; +TRADJENTA5 M1 PO; +[UNRECOGNIZED DRUG - OTHER] PO
== END | disposition home or self-care (01) ==
LOC: CARD 00:36
PROVIDERS: ATTEND Internal Medicine
DX: I49.3 Ventricular premature depolarization (principal); J44.9 Chronic obstructive pulmonary disease, unspecified; R53.81 Other malaise; J98.4 Other disorders of lung

== ENCOUNTER → 2021-04-09 | Outpatient (CLI) | payer MEDICARE | END | disposition home or self-care (01) | LOC: CARD 14:36 | PROVIDERS: ATTEND Internal Medicine | DX: I51.7 Cardiomegaly (principal); I34.8 Other nonrheumatic mitral valve disorders ==

== ENCOUNTER 2021-05-10 16:17 | Inpatient (IN) | payer MEDICARE ==
[~2021-05-10] VITALS: Ht 180.3 cm; Wt 155.3 kg
[~2021-05-10 16:17] MED LIST changes: -JARDIANCE10 MG PO; -TRADJENTA5 M1 PO; -[UNRECOGNIZED DRUG - OTHER] PO
[2021-05-10 16:27] VITALS: BP 179/77
[2021-05-10 16:44] LABS: BASO # 0.1 10*3/uL (0.0-0.1); BASO % 0.6 % (0.0-1.0); EOS # 0.1 10*3/uL (0.0-0.4); EOS % 1.3 % (1.0-4.0); LYMPH # 1.3 10*3/uL (1.3-4.4); LYMPH % 11.9 % (27.0-41.0); MEAN CELL VOLUME 76.6 fl (80.0-94.0); MEAN CORPUSCULAR HGB 21.8 pg (27.0-31.0); MEAN CORPUSCULAR HGB CONC 28.5 g/dl (33.0-37.0); MEAN PLATELET VOLUME 9.4 fl (9.6-12.3); MONO % 9.2 % (3.0-9.0); NEUT # 8.2 10*3/uL (2.3-7.9); NEUT % 76.5 % (47.0-73.0); PLATELET COUNT AUTOMATED 315 10*3/uL (130-400); RED BLOOD COUNT 4.31 10*6/uL (4.50-5.90); RED CELL DISTRI WIDTH 17.1 % (0-14.5); WHITE BLOOD COUNT 10.7 10*3/uL (4.8-10.8)
[2021-05-10 16:49] VITALS: BP 177/86
[2021-05-10 17:03] LABS: ALBUMIN 3.6 gm/dl (3.1-4.5); CREATININE 1.5 mg/dL (0.70-1.30); POTASSIUM 5.8 mmol/L (3.5-5.1); TOTAL PROTEIN 7.7 gm/dL (6.4-8.2)
[2021-05-10 17:06] LABS: TROPONIN I 0.235 ng/ml (<0.045)
[2021-05-10 17:13] VITALS: BP 157/74
[2021-05-10 17:36] VITALS: BP 155/70
[2021-05-10 17:42] VITALS: BP 160/81
[2021-05-10] MEDS ORDERED: JARDIANCE10 MG PO (18:15)
[2021-05-10] MEDS ORDERED: TRADJENTA5 M1 PO (18:16)
[2021-05-10 20:00] VITALS: BP 158/70
[2021-05-11] VITALS: BP 137/58
[2021-05-11 06:09] LABS: BASO # 0.1 10*3/uL (0.0-0.1); BASO % 0.5 % (0.0-1.0); EOS # 0.2 10*3/uL (0.0-0.4); EOS % 2.3 % (1.0-4.0); HEMATOCRIT 32.2 % (42.0-52.0); LYMPH # 1.3 10*3/uL (1.3-4.4); LYMPH % 14.2 % (27.0-41.0); MEAN CELL VOLUME 78.5 fl (80.0-94.0); MEAN PLATELET VOLUME 9.8 fl (9.6-12.3); MONO % 10.8 % (3.0-9.0); NEUT # 6.6 10*3/uL (2.3-7.9); NEUT % 71.4 % (47.0-73.0); PLATELET COUNT AUTOMATED 299 10*3/uL (130-400); WHITE BLOOD COUNT 9.2 10*3/uL (4.8-10.8)
[2021-05-11 06:13] LABS: ALBUMIN 3.4 gm/dl (3.1-4.5); CREATININE 1.53 mg/dL (0.70-1.30); FREE T4 1.14 ng/dl (0.76-1.46); TOTAL PROTEIN 7.4 gm/dL (6.4-8.2)
[2021-05-11 06:18] LABS: THYROID STIM HORMONE (HS) 1.04 uIU/ml (0.358-4.75)
[2021-05-11 06:28] LABS: POTASSIUM 4.5 mmol/L (3.5-5.1)
[2021-05-11 08:00] VITALS: BP 145/82
[2021-05-11 12:00] VITALS: BP 125/41
[2021-05-11 16:00] VITALS: BP 149/68
[2021-05-11 20:00] VITALS: BP 131/50
[2021-05-11 21:57] VITALS: BP 155/50
[2021-05-12] VITALS: BP 131/47
[2021-05-12 06:24] LABS: BASO # 0.1 10*3/uL (0.0-0.1); BASO % 0.7 % (0.0-1.0); EOS # 0.2 10*3/uL (0.0-0.4); EOS % 2.4 % (1.0-4.0); HEMATOCRIT 32.1 % (42.0-52.0); LYMPH # 1.4 10*3/uL (1.3-4.4); LYMPH % 13.5 % (27.0-41.0); MEAN CORPUSCULAR HGB 21.8 pg (27.0-31.0); MEAN CORPUSCULAR HGB CONC 28.3 g/dl (33.0-37.0); MEAN PLATELET VOLUME 9.5 fl (9.6-12.3); MONO # 0.8 10*3/uL (0.1-1.0); MONO % 7.7 % (3.0-9.0); NEUT # 7.6 10*3/uL (2.3-7.9); NEUT % 74.9 % (47.0-73.0); PLATELET COUNT AUTOMATED 326 10*3/uL (130-400); RED BLOOD COUNT 4.17 10*6/uL (4.50-5.90); RED CELL DISTRI WIDTH 16.9 % (0-14.5); WHITE BLOOD COUNT 10.1 10*3/uL (4.8-10.8)
[2021-05-12 06:39] LABS: CREATININE 1.57 mg/dL (0.70-1.30); POTASSIUM 4.3 mmol/L (3.5-5.1)
[2021-05-12 12:00] VITALS: BP 126/74
[2021-05-12 16:00] VITALS: BP 149/75
[2021-05-12 20:00] VITALS: BP 152/63
[2021-05-13] VITALS: BP 144/78
[2021-05-13 06:07] LABS: BASO # 0.1 10*3/uL (0.0-0.1); BASO % 0.6 % (0.0-1.0); EOS # 0.2 10*3/uL (0.0-0.4); EOS % 2.7 % (1.0-4.0); HEMATOCRIT 32.6 % (42.0-52.0); LYMPH # 1.2 10*3/uL (1.3-4.4); LYMPH % 14.1 % (27.0-41.0); MEAN CELL VOLUME 77.6 fl (80.0-94.0); MEAN CORPUSCULAR HGB 21.7 pg (27.0-31.0); MEAN CORPUSCULAR HGB CONC 27.9 g/dl (33.0-37.0); MEAN PLATELET VOLUME 10.5 fl (9.6-12.3); MONO # 0.8 10*3/uL (0.1-1.0); MONO % 9.1 % (3.0-9.0); NEUT # 6.4 10*3/uL (2.3-7.9); PLATELET COUNT AUTOMATED 297 10*3/uL (130-400); RED CELL DISTRI WIDTH 16.8 % (0-14.5); WHITE BLOOD COUNT 8.8 10*3/uL (4.8-10.8)
[2021-05-13 06:27] LABS: POTASSIUM 4.2 mmol/L (3.5-5.1)
[2021-05-13 06:34] LABS: CREATININE 1.51 mg/dL (0.70-1.30)
[2021-05-13 08:00] VITALS: BP 135/69
[2021-05-13 12:00] VITALS: BP 146/65
[2021-05-13 16:00] VITALS: BP 152/68
[2021-05-13 20:00] VITALS: BP 148/63
[2021-05-14] VITALS: BP 150/39
[2021-05-14 06:27] LABS: BASO # 0.1 10*3/uL (0.0-0.1); BASO % 0.6 % (0.0-1.0); EOS # 0.3 10*3/uL (0.0-0.4); EOS % 3.3 % (1.0-4.0); HEMATOCRIT 30.9 % (42.0-52.0); LYMPH # 1.2 10*3/uL (1.3-4.4); MEAN CELL VOLUME 76.5 fl (80.0-94.0); MEAN CORPUSCULAR HGB CONC 28.8 g/dl (33.0-37.0); MEAN PLATELET VOLUME 9.4 fl (9.6-12.3); MONO # 0.7 10*3/uL (0.1-1.0); MONO % 8.6 % (3.0-9.0); NEUT # 6.2 10*3/uL (2.3-7.9); PLATELET COUNT AUTOMATED 305 10*3/uL (130-400); RED BLOOD COUNT 4.04 10*6/uL (4.50-5.90); RED CELL DISTRI WIDTH 16.9 % (0-14.5); WHITE BLOOD COUNT 8.5 10*3/uL (4.8-10.8)
[2021-05-14 06:45] LABS: CREATININE 1.55 mg/dL (0.70-1.30); POTASSIUM 4.2 mmol/L (3.5-5.1)
[2021-05-14 08:00] VITALS: BP 103/89
[2021-05-14 12:00] VITALS: BP 148/96
[2021-05-14 16:00] VITALS: BP 133/58
[2021-05-14 20:00] VITALS: BP 149/71
[2021-05-15] MEDS ORDERED: [UNRECOGNIZED DRUG - OTHER] PO (13:17)
== END 2021-05-14 21:19 | disposition home or self-care (01) | DRG 291 ==
LOC: ED 16:17 → 5E 17:22 → EDHOLD 17:22 → 5E 17:34
PROVIDERS: Emergency Medicine; Podiatrist Foot & Ankle Surgery; ADMIT Internal Medicine; ATTEND Internal Medicine
DX: I13.0 Hypertensive heart and chronic kidney disease with heart failure and stage 1 through stage 4 chronic kidney disease, or unspecified chronic kidney disease (principal); J96.00 Acute respiratory failure, unspecified whether with hypoxia or hypercapnia; I50.33 Acute on chronic diastolic (congestive) heart failure; R65.11 Systemic inflammatory response syndrome (SIRS) of non-infectious origin with acute organ dysfunction; I24.8 Other forms of acute ischemic heart disease; Z20.822 Contact with and (suspected) exposure to COVID-19; N18.30 Chronic kidney disease, stage 3 unspecified; E87.5 Hyperkalemia; R00.1 Bradycardia, unspecified; R91.8 Other nonspecific abnormal finding of lung field; I48.91 Unspecified atrial fibrillation; E11.22 Type 2 diabetes mellitus with diabetic chronic kidney disease; K80.20 Calculus of gallbladder without cholecystitis without obstruction; E78.5 Hyperlipidemia, unspecified; M10.9 Gout, unspecified; E55.9 Vitamin D deficiency, unspecified; Z79.01 Long term (current) use of anticoagulants; Z79.82 Long term (current) use of aspirin; Z79.899 Other long term (current) drug therapy; Z79.4 Long term (current) use of insulin; Z90.49 Acquired absence of other specified parts of digestive tract

== ENCOUNTER → 2021-07-06 | Outpatient (CLI) | payer MEDICARE ==
[~2021-07-06] MED LIST changes: +FUROSEMIDE40 MG PO; +JARDIANCE10 MG PO; +PROPAFENONE HC225 MG PO; +TRADJENTA5 M1 PO; +Zaroxolyn,Diul2.5 MG PO; +[UNRECOGNIZED DRUG - OTHER] PO
[2021-07-06 13:08] LABS: BASO % 0.5 % (0.0-1.0); EOS # 0.2 10*3/uL (0.0-0.4); EOS % 1.8 % (1.0-4.0); HEMATOCRIT 32.7 % (42.0-52.0); LYMPH # 0.9 10*3/uL (1.3-4.4); LYMPH % 10.6 % (27.0-41.0); MEAN CORPUSCULAR HGB 22.2 pg (27.0-31.0); MEAN CORPUSCULAR HGB CONC 28.4 g/dl (33.0-37.0); MEAN PLATELET VOLUME 9.1 fl (9.6-12.3); MONO # 0.6 10*3/uL (0.1-1.0); MONO % 7.2 % (3.0-9.0); NEUT # 6.7 10*3/uL (2.3-7.9); NEUT % 79.3 % (47.0-73.0); PLATELET COUNT AUTOMATED 280 10*3/uL (130-400); RED BLOOD COUNT 4.19 10*6/uL (4.50-5.90); RED CELL DISTRI WIDTH 22.8 % (0-14.5); WHITE BLOOD COUNT 8.5 10*3/uL (4.8-10.8)
[2021-07-06 13:08] LABS: ABG BASE EXCESS 1.4 mmol/L (-2.0-2.0); ARTERIAL BLOOD GAS PH 7.415 (7.35-7.45); ARTERIAL BLOOD GAS PO2 69.5 (80-90)
[2021-07-06 13:39] LABS: ALBUMIN 3.1 gm/dl (3.1-4.5); CREATININE 1.59 mg/dL (0.70-1.30); FREE T4 1.18 ng/dl (0.76-1.46); POTASSIUM 4.4 mmol/L (3.5-5.1); TOTAL PROTEIN 7.5 gm/dL (6.4-8.2)
[2021-07-06 13:44] LABS: THYROID STIM HORMONE (HS) 1.54 uIU/ml (0.358-4.75)
== END | disposition home or self-care (01) ==
LOC: LAB 12:44
PROVIDERS: ATTEND Internal Medicine
DX: R06.02 Shortness of breath (principal)

== ENCOUNTER → 2021-09-02 | Outpatient (CLI) | payer MEDICARE | END | disposition home or self-care (01) | LOC: COVID19 15:22 | PROVIDERS: ATTEND Internal Medicine | DX: U07.1 COVID-19 (principal) ==

== ENCOUNTER → 2022-11-06 | Outpatient (CLI) | payer MEDICARE | END | disposition home or self-care (01) | LOC: LAB 08:42 | PROVIDERS: ATTEND Internal Medicine | DX: M25.852 Other specified joint disorders, left hip (principal) ==

== ENCOUNTER → 2023-05-13 | Outpatient (CLI) | payer MEDICARE ==
[2023-05-13 11:25] LABS: POTASSIUM 4.9 mmol/L (3.4-5.1)
== END | disposition home or self-care (01) ==
LOC: LAB 09:58
PROVIDERS: ATTEND Internal Medicine
DX: S20.96XA Insect bite (nonvenomous) of unspecified parts of thorax, initial encounter (principal); E11.65 Type 2 diabetes mellitus with hyperglycemia; I10 Essential (primary) hypertension; R42 Dizziness and giddiness; X58.XXXA Exposure to other specified factors, initial encounter; Y93.89 Activity, other specified; Y92.89 Other specified places as the place of occurrence of the external cause; Y99.8 Other external cause status

== ENCOUNTER → 2024-01-11 | Outpatient (CLI) | payer MEDICARE ==
[~2024-01-11] MED LIST changes: +Regadenoson 0.4 MG/5 ML SYR IV ONE; +Technetium Tc 99M Tetrofosmi 0.23 MG KIT IJ SCH
[2024-01-11 09:58] LABS: BASO # 0.1 10*3/uL (0.0-0.1); BASO % 0.7 % (0.0-1.0); EOS # 0.2 10*3/uL (0.0-0.4); EOS % 2.4 % (1.0-4.0); HEMATOCRIT 39.6 % (42.0-52.0); LYMPH % 13.5 % (27.0-41.0); MEAN CORPUSCULAR HGB CONC 31.1 g/dl (33.0-37.0); MEAN PLATELET VOLUME 9.6 fl (9.6-12.3); MONO # 0.7 10*3/uL (0.1-1.0); MONO % 8.9 % (3.0-9.0); NEUT # 5.6 10*3/uL (2.3-7.9); NEUT % 72.9 % (47.0-73.0); PLATELET COUNT AUTOMATED 256 10*3/uL (130-400); RED CELL DISTRI WIDTH 15.7 % (0-14.5); WHITE BLOOD COUNT 7.7 10*3/uL (4.8-10.8)
[2024-01-11 10:23] LABS: ALKALINE PHOSPHATASE 79 U/L (46-116); BUN 23 mg/dl (9-23); CHLORIDE 104 mmol/L (98-107); POTASSIUM 4.1 mmol/L (3.4-5.1); SGPT/ALT 27 U/L (5-49); TOTAL PROTEIN 7.3 gm/dL (6.0-8.0)
== END | disposition home or self-care (01) ==
LOC: LAB 01:31 → CARD 01:31
PROVIDERS: ATTEND Internal Medicine
DX: I11.9 Hypertensive heart disease without heart failure (principal); J84.89 Other specified interstitial pulmonary diseases; J98.11 Atelectasis; R06.02 Shortness of breath

== ENCOUNTER → 2024-02-01 | Outpatient (CLI) | payer MEDICARE ==
[~2024-02-01] MED LIST changes: -Regadenoson 0.4 MG/5 ML SYR IV ONE; -Technetium Tc 99M Tetrofosmi 0.23 MG KIT IJ SCH
== END | disposition home or self-care (01) ==
LOC: CARD 01:30
PROVIDERS: ATTEND Internal Medicine
DX: I51.7 Cardiomegaly (principal); I48.91 Unspecified atrial fibrillation

== ENCOUNTER → 2024-02-17 | Outpatient (CLI) | payer MEDICARE | END | disposition home or self-care (01) | LOC: US 13:29 | PROVIDERS: ATTEND Internal Medicine | DX: R60.0 Localized edema (principal); M79.604 Pain in right leg; M79.605 Pain in left leg ==

== ENCOUNTER 2024-08-16 11:33 | Emergency (ER) | payer MEDICARE ==
[~2024-08-16] VITALS: Ht 180.3 cm; Wt 158.8 kg
[2024-08-16 12:25] LABS: BASO # 0.1 10*3/uL (0.0-0.1); BASO % 0.6 % (0.0-1.0); EOS # 0.1 10*3/uL (0.0-0.4); EOS % 1.4 % (1.0-4.0); HEMATOCRIT 34.1 % (42.0-52.0); MEAN CELL VOLUME 85.7 fl (80.0-94.0); MEAN CORPUSCULAR HGB 25.1 pg (27.0-31.0); MEAN CORPUSCULAR HGB CONC 29.3 g/dl (33.0-37.0); MEAN PLATELET VOLUME 8.9 fl (9.6-12.3); MONO # 0.6 10*3/uL (0.1-1.0); MONO % 7.3 % (3.0-9.0); NEUT # 6.4 10*3/uL (2.3-7.9); NEUT % 80.8 % (47.0-73.0); PLATELET COUNT AUTOMATED 236 10*3/uL (130-400); RED BLOOD COUNT 3.98 10*6/uL (4.50-5.90); RED CELL DISTRI WIDTH 16.5 % (0-14.5)
[2024-08-16 12:48] LABS: POTASSIUM 4.1 mmol/L (3.4-5.1)
[2024-08-16] MEDS ORDERED: FUROSEMIDE 40 MG/4 ML VIAL IV ONE (13:25)
== END 2024-08-16 14:54 | disposition left against medical advice (07) ==
LOC: ED 11:33
PROVIDERS: Emergency Medicine
DX: I13.0 Hypertensive heart and chronic kidney disease with heart failure and stage 1 through stage 4 chronic kidney disease, or unspecified chronic kidney disease (principal); I50.9 Heart failure, unspecified; I21.4 Non-ST elevation (NSTEMI) myocardial infarction; Z53.29 Procedure and treatment not carried out because of patient's decision for other reasons; E11.22 Type 2 diabetes mellitus with diabetic chronic kidney disease; N18.9 Chronic kidney disease, unspecified; E78.5 Hyperlipidemia, unspecified; K21.9 Gastro-esophageal reflux disease without esophagitis; I48.91 Unspecified atrial fibrillation; M10.9 Gout, unspecified; Z90.49 Acquired absence of other specified parts of digestive tract; Z98.890 Other specified postprocedural states

== ENCOUNTER → 2024-11-20 | Outpatient (CLI) | payer OTHER | END | disposition home or self-care (01) | LOC: CT 10:38 | PROVIDERS: ATTEND Internal Medicine Critical Care Medicine | DX: J98.11 Atelectasis (principal); J90 Pleural effusion, not elsewhere classified; J18.9 Pneumonia, unspecified organism; R06.02 Shortness of breath; I51.7 Cardiomegaly; I10 Essential (primary) hypertension ==